=== PATIENT | male | born 1935 | race Caucasian/White ===

== ENCOUNTER 2018-10-25 11:37 | Inpatient (IN) | payer MEDICARE ==
[~2018-10-25] VITALS: Ht 160 cm; Wt 70.8 kg
--- NOTE | 2018-10-25 11:45 | NUR ---
requested records from [facility].
[2018-10-25 12:07] LABS: BASOPHILS # (AUTO) 0.02 x10^3/uL (0-0.1); BASOPHILS % (AUTO) 0 % (0-1); EOSINOPHILS # (AUTO) 0.43 x10^3/uL (0-0.4); EOSINOPHILS % (AUTO) 5 % (1-7); INTERNATIONAL NORMALIZED RATIO 0.99 (0.93-1.1); LYMPHOCYTES # (AUTO) 1.04 x10^3/uL (1-3.4); LYMPHOCYTES % (AUTO) 12 % (22-44); MD NO; MEAN CORPUSCULAR HGB CONC 32.9 g/dL (33.2-36.2); MEAN CORPUSCULAR VOLUME 87.9 fL (81-97); MEAN PLATELET VOLUME 8.8 fL (7.4-10.4); MONOCYTES # (AUTO) 0.81 x10^3/uL (0.2-0.8); MONOCYTES % (AUTO) 10 % (2-9); NEUTROPHILS # (AUTO) 6.11 x10^3/uL (1.8-6.8); NEUTROPHILS % (AUTO) 73 % (42-75); PLATELET COUNT 134 x10^3/uL (130-400); PROTHROMBIN TIME 10.4 Seconds (9.6-11.5); RED BLOOD COUNT 5.14 x10^6/uL (4.38-5.82); RED CELL DISTRIBUTION WIDTH 13.9 % (9.4-14.8)
[2018-10-25 12:08] LABS: ALBUMIN 3.8 g/dL (3.4-5.0); ANION GAP 6 mmol/L (5-15); CALCIUM 9.3 mg/dL (8.5-10.1); CHLORIDE 100 mmol/L (98-107)
[2018-10-25 12:13] LABS: CREATININE 1.47 mg/dL (0.7-1.3); TROPONIN I < 0.015 ng/mL (0.000-0.045)
--- NOTE | 2018-10-25 12:16 | NUR ---
PT TO ED AFTER GLF FALL WITH +LOC ON TUESDAY. ON XARELTO. PT WAS SEEN AT [facility] THAT DAY AND [place] THE NEXT DAY. PT REPORT NEW ONSET BLURRY VISION IN R EYE AND INCREASED SLEEPINESS SINCE THIS AM. PERRLA, NO S/S STROKE. VISION IMPROVED WHEN EYELID LIFTED. CONNECTED TO MONITORS. HTN, ALL OTHER VSS. EDMD ASSESSMENT COMPLETE. ORDERS RECEIVED. LABS DRAWN. AWAITING URINE SAMPLE.
[2018-10-25] MEDS ORDERED: XARELTO PO (12:29)
[2018-10-25] MEDS ORDERED: METOPROLOL PO (12:29)
[2018-10-25] MEDS ORDERED: LOVASTATIN PO (12:29)
[2018-10-25] MEDS ORDERED: LISINOPRIL PO (12:29)
[2018-10-25] MEDS ORDERED: FUROSEMIDE PO (12:29)
[2018-10-25] MEDS ORDERED: [UNRECOGNIZED DRUG - OTHER] PO (12:29)
[2018-10-25] MEDS ORDERED: POTASSIUM (12:29)
[2018-10-25] MEDS ORDERED: PANTOPRAZOLE PO (12:29)
[2018-10-25] MEDS ORDERED: SPIRONOLACTONE PO (12:29)
[2018-10-25 12:51] LABS: MICROSCOPIC AUTO
[2018-10-25 12:58] LABS: AMPHETAMINE SCREEN, URINE Negative (Negative); BARBITURATE SCREEN, URINE Negative (Negative); BENZODIAZEPINE SCREEN, URINE Negative (Negative); CANNABINOID SCREEN, URINE Negative (Negative); COCAINE SCREEN, URINE Negative (Negative); METHADONE SCREEN, URINE Negative (Negative); OPIATE SCREEN, URINE Negative (Negative)
[2018-10-25 13:00] LABS: CULTURE INDICATED? YES
--- NOTE | 2018-10-25 13:32 | NUR ---
PT BACK FROM CT. VSS. RESTING IN ROOM [facility] AT BEDSIDE. NO NEEDS EXPRESSED. CALL LIGHT WITHIN REACH. ALL RESULTS BACK AT THIS TIME. CHART UP FOR RECHECK.
[2018-10-25] MEDS ORDERED: CEFTRIAXONE PMX 1GM/50ML 50 ML IVPB ONE (14:30)
[2018-10-25] MEDS ORDERED: CEFTRIAXONE PMX 1GM/50ML 50 ML ONE (14:36)
--- NOTE | 2018-10-25 14:50 | NUR ---
PT RESTING IN ROOM [facility] AT BEDSIDE. HTN, ALL OTHER VSS ON RA. PT MEDICATED PER SEP. VERIFIED BC COLLECTED X2. AWAITING ROOM ASSIGNMENT.
[2018-10-25] MEDS ORDERED: AMMONIUM LACTATE (14:55)
[2018-10-25] MEDS ORDERED: TRIAMCINOLONE EXT (14:55)
[2018-10-25] MEDS ORDERED: VENTOLIN PO (14:55)
[2018-10-25] MEDS ORDERED: PAZEO (14:55)
[2018-10-25] MEDS ORDERED: LABETALOL 5MG/ML, 20ML IVPush PRN (17:00)
[2018-10-25] MEDS ORDERED: PLEASE ENTER ALLERGIES MC SCH (17:00)
[2018-10-25] MEDS ORDERED: ACETAMINOPHEN 325 MG TABLET PO PRN (17:00)
[2018-10-25] MEDS ORDERED: ONDANSETRON 2MG/ML, 2ML IVPush PRN (17:00)
[2018-10-25] MEDS ORDERED: hydrALAzine 20 MG/ML, 1ML IVPush PRN (17:00)
[2018-10-25] MEDS ORDERED: CEFTRIAXONE PMX 1GM/50ML 50 ML IV SCH (17:00)
[2018-10-25 17:40] VITALS: BP 145/84
[2018-10-25] MEDS: SODIUM CHLORIDE 0.9% 1,000 ML IV SCH (17:51)
[2018-10-25] MEDS: METOPROLOL TARTRATE 25 MG TABLET PO SCH (17:51)
[2018-10-25 18:02] LABS: TROPONIN I < 0.015 ng/mL (0.000-0.045)
[2018-10-25 19:10] VITALS: BP 137/78
[2018-10-26 00:06] LABS: TROPONIN I < 0.015 ng/mL (0.000-0.045)
[2018-10-26 01:14] VITALS: BP 129/72
[2018-10-26] MEDS: SODIUM CHLORIDE 0.9% 1,000 ML IV SCH ×2 (02:32→18:44)
[2018-10-26] MEDS: METOPROLOL TARTRATE 25 MG TABLET PO SCH ×2 (05:24→18:40)
[2018-10-26 07:14] LABS: MEAN CORPUSCULAR HEMOGLOBIN 28.4 pg (27.5-34.5); MEAN CORPUSCULAR HGB CONC 32.2 g/dL (33.2-36.2); MEAN CORPUSCULAR VOLUME 88.3 fL (81-97); RED BLOOD COUNT 4.96 x10^6/uL (4.38-5.82); RED CELL DISTRIBUTION WIDTH 13.6 % (9.4-14.8)
[2018-10-26 07:18] VITALS: BP 135/67
[2018-10-26 07:20] LABS: ALBUMIN 3.5 g/dL (3.4-5.0); ANION GAP 6 mmol/L (5-15); CALCIUM 8.7 mg/dL (8.5-10.1); CHLORIDE 104 mmol/L (98-107)
[2018-10-26 07:23] LABS: ALANINE AMINOTRANSFERASE 13 U/L (12-78); ALKALINE PHOSPHATASE 91 U/L (45-117); BILIRUBIN,TOTAL 1.6 mg/dL (0.2-1.0); TOTAL PROTEIN 6.8 g/dL (6.4-8.2)
[2018-10-26 07:56] LABS: BASOPHILS # (AUTO) 0.03 x10^3/uL (0-0.1); BASOPHILS % (AUTO) 0 % (0-1); EOSINOPHILS # (AUTO) 0.38 x10^3/uL (0-0.4); EOSINOPHILS % (AUTO) 4 % (1-7); LYMPHOCYTES # (AUTO) 1.66 x10^3/uL (1-3.4); LYMPHOCYTES % (AUTO) 17 % (22-44); MD SCAN; MONOCYTES % (AUTO) 9 % (2-9); NEUTROPHILS # (AUTO) 6.98 x10^3/uL (1.8-6.8); NEUTROPHILS % (AUTO) 70 % (42-75); PLATELET COUNT 92 x10^3/uL (130-400)
[2018-10-26 12:21] VITALS: BP 168/68
[2018-10-26] MEDS: CEFTRIAXONE PMX 1GM/50ML 50 ML IV SCH (14:29)
[2018-10-26 18:56] VITALS: BP 155/68
[2018-10-27] MEDS ORDERED: POTA10TA11 PO (01:36)
[2018-10-27 02:20] VITALS: BP 129/83
[2018-10-27 02:44] VITALS: BP 119/75
[2018-10-27 06:24] VITALS: BP 133/82
[2018-10-27] MEDS: METOPROLOL TARTRATE 25 MG TABLET PO SCH (06:31)
[2018-10-27 14:01] VITALS: BP 153/80
[2018-10-27] MEDS: SODIUM CHLORIDE 0.9% 1,000 ML IV SCH (14:20)
[2018-10-27] MEDS: CEFTRIAXONE PMX 1GM/50ML 50 ML IV SCH (14:20)
[2018-10-27] MEDS ORDERED: OMNIPAQUE 350 MG/ML, 100ML BOTTLE ONE (15:50)
[2018-10-27] MEDS: TRIAMCINOLONE CRM 0.5%, 15GM EXT SCH ×2 (16:00→21:00)
[2018-10-27] MEDS: RIVAROXABAN 15 MG TABLET PO SCH (18:08)
[2018-10-27 19:43] VITALS: BP 127/72
[2018-10-27] MEDS: POTASSIUM CHLORIDE 20 MEQ TAB.ER.PRT PO SCH (21:33)
[2018-10-27] MEDS: LOVASTATIN 40 MG TABLET PO SCH (21:33)
[2018-10-28 01:46] VITALS: BP 145/76
[2018-10-28 08:00] VITALS: BP 145/90
[2018-10-28] MEDS: POTASSIUM CHLORIDE 20 MEQ TAB.ER.PRT PO SCH ×3 (08:26→19:48)
[2018-10-28] MEDS: LISINOPRIL 10 MG TABLET PO SCH (08:27)
[2018-10-28] MEDS: PANTOPROZOLE 40MG TABLET PO SCH (08:27)
[2018-10-28] MEDS: TRIAMCINOLONE CRM 0.5%, 15GM EXT SCH ×3 (08:28→19:48)
[2018-10-28] MEDS: ISOSORBIDE MONONITRATE ER 60 MG TABLET PO SCH (08:28)
[2018-10-28] MEDS: SPIRONOLACTONE 25 MG TABLET PO SCH (08:28)
[2018-10-28 08:36] LABS: MEAN CORPUSCULAR HEMOGLOBIN 28.7 pg (27.5-34.5); MEAN CORPUSCULAR HGB CONC 32.7 g/dL (33.2-36.2); MEAN CORPUSCULAR VOLUME 87.8 fL (81-97); RED BLOOD COUNT 4.72 x10^6/uL (4.38-5.82); RED CELL DISTRIBUTION WIDTH 13.7 % (9.4-14.8)
[2018-10-28 08:41] LABS: ALANINE AMINOTRANSFERASE 16 U/L (12-78); ALBUMIN 3.3 g/dL (3.4-5.0); ANION GAP 8 mmol/L (5-15); CALCIUM 8.4 mg/dL (8.5-10.1); CHLORIDE 105 mmol/L (98-107); CREATININE 1.18 mg/dL (0.7-1.3)
[2018-10-28 08:42] LABS: ALKALINE PHOSPHATASE 90 U/L (45-117); TOTAL PROTEIN 6.4 g/dL (6.4-8.2)
[2018-10-28] MEDS ORDERED: METOPROLOL TARTRATE 100 MG TABLET PO SCH (09:00)
[2018-10-28 09:13] LABS: BASOPHILS # (AUTO) 0.04 x10^3/uL (0-0.1); BASOPHILS % (AUTO) 1 % (0-1); EOSINOPHILS % (AUTO) 6 % (1-7); LYMPHOCYTES # (AUTO) 1.12 x10^3/uL (1-3.4); LYMPHOCYTES % (AUTO) 14 % (22-44); MD SCAN; MEAN PLATELET VOLUME 10.1 fL (7.4-10.4); MONOCYTES # (AUTO) 0.72 x10^3/uL (0.2-0.8); MONOCYTES % (AUTO) 9 % (2-9); NEUTROPHILS # (AUTO) 5.53 x10^3/uL (1.8-6.8); NEUTROPHILS % (AUTO) 70 % (42-75); PLATELET COUNT 81 x10^3/uL (130-400)
[2018-10-28 13:30] VITALS: BP 115/63
[2018-10-28] MEDS ORDERED: OMNIPAQUE 350 MG/ML, 100ML BOTTLE ONE (13:35)
[2018-10-28] MEDS: CEFTRIAXONE PMX 1GM/50ML 50 ML IV SCH (14:31)
[2018-10-28] MEDS: RIVAROXABAN 15 MG TABLET PO SCH (16:21)
[2018-10-28] MEDS: SODIUM CHLORIDE 0.9% 1,000 ML IV SCH (16:22)
[2018-10-28] MEDS: LOVASTATIN 40 MG TABLET PO SCH (19:48)
[2018-10-28 20:12] VITALS: BP 134/94
[2018-10-29 01:26] VITALS: BP 159/95
[2018-10-29 07:07] VITALS: BP 160/93
[2018-10-29] MEDS ORDERED: NITROFURANTOIN 50 MG CAPSULE PO SCH (08:00)
[2018-10-29] MEDS: TRIAMCINOLONE CRM 0.5%, 15GM EXT SCH ×4 (09:00→20:29)
[2018-10-29] MEDS: CEFDINIR 300 MG CAPSULE PO SCH ×2 (09:34→20:24)
[2018-10-29] MEDS: SPIRONOLACTONE 25 MG TABLET PO SCH (09:34)
[2018-10-29] MEDS: LISINOPRIL 10 MG TABLET PO SCH (09:34)
[2018-10-29] MEDS: PANTOPROZOLE 40MG TABLET PO SCH (09:34)
[2018-10-29] MEDS: ISOSORBIDE MONONITRATE ER 60 MG TABLET PO SCH (09:35)
[2018-10-29] MEDS ORDERED: PHARMACY INSTRUCTION MC PRN (10:30)
[2018-10-29] MEDS ORDERED: QUETIAPINE 25MG TABLET PO PRN (10:30)
[2018-10-29] MEDS: SODIUM CHLORIDE 0.9% 1,000 ML IV SCH (11:52)
[2018-10-29 12:52] VITALS: BP 146/78
[2018-10-29] MEDS: RIVAROXABAN 15 MG TABLET PO SCH (16:33)
[2018-10-29 20:00] VITALS: BP 120/72
[2018-10-29] MEDS: LOVASTATIN 40 MG TABLET PO SCH (20:24)
[2018-10-29] MEDS: MELATONIN 3 MG TABLET PO SCH (20:24)
[2018-10-30 07:26] VITALS: BP 97/42
[2018-10-30 08:01] VITALS: BP 110/71
[2018-10-30] MEDS: TRIAMCINOLONE CRM 0.5%, 15GM EXT SCH ×3 (09:00→19:47)
[2018-10-30] MEDS ORDERED: METO-95 PO (09:45)
[2018-10-30] MEDS: CEFDINIR 300 MG CAPSULE PO SCH ×2 (09:47→20:22)
[2018-10-30] MEDS: PANTOPROZOLE 40MG TABLET PO SCH (09:47)
[2018-10-30] MEDS: LISINOPRIL 10 MG TABLET PO SCH (09:47)
[2018-10-30] MEDS: ISOSORBIDE MONONITRATE ER 60 MG TABLET PO SCH (09:47)
[2018-10-30] MEDS: SPIRONOLACTONE 25 MG TABLET PO SCH (09:47)
[2018-10-30] MEDS ORDERED: CEFD300C37 PO (11:27)
[2018-10-30] MEDS ORDERED: MELA3TAB2 PO (11:27)
[2018-10-30] MEDS ORDERED: MAGNESIUM HYDROXIDE 8%, 30ML UDC PO ONE (12:00)
[2018-10-30 12:07] VITALS: BP 107/73
[2018-10-30] MEDS: DOCUSATE 100 MG CAPSULE PO SCH ×2 (12:10→20:22)
[2018-10-30] MEDS: METOPROLOL SUCCINATE 100 MG TAB.ER.24H PO SCH (12:10)
[2018-10-30] MEDS ORDERED: MAGNESIUM CITRATE 300ML ORAL SOL PO ONE (14:00)
[2018-10-30 15:30] VITALS: BP 126/80
[2018-10-30] MEDS: RIVAROXABAN 15 MG TABLET PO SCH (19:13)
[2018-10-30] MEDS: LOVASTATIN 40 MG TABLET PO SCH (20:22)
[2018-10-30] MEDS: MELATONIN 3 MG TABLET PO SCH (20:22)
[2018-10-30 20:28] VITALS: BP 145/67
[2018-10-31 01:34] VITALS: BP 138/75
[2018-10-31 07:27] VITALS: BP 105/54
[2018-10-31] MEDS: CEFDINIR 300 MG CAPSULE PO SCH (08:52)
[2018-10-31] MEDS: LISINOPRIL 10 MG TABLET PO SCH (08:52)
[2018-10-31] MEDS: SPIRONOLACTONE 25 MG TABLET PO SCH (08:52)
[2018-10-31] MEDS: ISOSORBIDE MONONITRATE ER 60 MG TABLET PO SCH (08:52)
[2018-10-31] MEDS: PANTOPROZOLE 40MG TABLET PO SCH (08:52)
[2018-10-31] MEDS: TRIAMCINOLONE CRM 0.5%, 15GM EXT SCH (08:53)
[2018-10-31] MEDS: METOPROLOL SUCCINATE 100 MG TAB.ER.24H PO SCH (08:53)
[2018-10-31] MEDS: DOCUSATE 100 MG CAPSULE PO SCH (08:53)
== END 2018-10-31 14:19 | DRG 682 ==
LOC: ED 14:42 → EDIP 15:34 → 4WST 15:46
PROVIDERS: ADMIT Internal Medicine; ATTEND Internal Medicine
DX: N17.0 Acute kidney failure with tubular necrosis (principal); G93.41 Metabolic encephalopathy; N39.0 Urinary tract infection, site not specified; E87.1 Hypo-osmolality and hyponatremia; D68.69 Other thrombophilia; G96.0 Cerebrospinal fluid leak; Q27.30 Arteriovenous malformation, site unspecified; E86.1 Hypovolemia; I10 Essential (primary) hypertension; I48.91 Unspecified atrial fibrillation; I65.09 Occlusion and stenosis of unspecified vertebral artery; W18.39XA Other fall on same level, initial encounter; Y93.89 Activity, other specified; Y92.89 Other specified places as the place of occurrence of the external cause; Y99.8 Other external cause status; S09.90XA Unspecified injury of head, initial encounter; Z79.01 Long term (current) use of anticoagulants; Z86.73 Personal history of transient ischemic attack (TIA), and cerebral infarction without residual deficits; Z95.1 Presence of aortocoronary bypass graft; D18.1 Lymphangioma, any site
CPT/HCPCS: 36415; 70450; 70496; 70498; 70551; 71045; 80048; 80053; 80307; 81001; 82040; 82140; 82607; 83605; 83735; 84443; 84484; 85025; 85610; 85730; 87040; 87077; 87086; 87186; 93005; 93306; 93880; 96374; 99285; G0378; J0696; Q9967; J7030